=== PATIENT | female | born 1995 | race Caucasian/White ===

== ENCOUNTER 2018-03-15 23:36 | Emergency (ER) | payer SELFPAY ==
[2018-03-16] MEDS ORDERED: IV NS 0.9% 1,000 ML BAG IV ONE
[2018-03-16] MEDS ORDERED: ONDANSETRON HCL/PF 4 MG/2 ML VIAL IVP ONE
[2018-03-16] MEDS ORDERED: MAG HYDROX/AL HYDROX/SIMETH 30 ML UDC PO ONE
[2018-03-16] MEDS ORDERED: PANTOPRAZOLE 40 MG VIAL IV ONE
[2018-03-16] MEDS ORDERED: PANTOPRAZOLE 40 MG VIAL ONE (00:09)
[2018-03-16] MEDS ORDERED: ONDANSETRON HCL/PF 4 MG/2 ML VIAL ONE (00:10)
[2018-03-16] MEDS ORDERED: MAG HYDROX/AL HYDROX/SIMETH 30 ML UDC ONE (00:10)
== END 2018-03-16 01:20 | disposition home or self-care (01) ==
DX: R10.13 Epigastric pain (principal); Z85.72 Personal history of non-Hodgkin lymphomas; Z92.21 Personal history of antineoplastic chemotherapy; Z60.2 Problems related to living alone; W19.XXXA Unspecified fall, initial encounter; Y93.89 Activity, other specified; Y92.89 Other specified places as the place of occurrence of the external cause; Y99.8 Other external cause status